=== PATIENT | female | born 2005 | race Caucasian/White ===

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

== ENCOUNTER 2025-03-26 12:40 | Outpatient (CLI) | payer BC ==
[2025-03-26 13:17] LABS: Hematocrit 40.1 % (36.0-46.0); Hemoglobin 13.7 g/dL (12.2-16.2); Mean Corpuscular Hemoglobin 29.3 pg (28.0-32.0); Mean Corpuscular Volume 85.5 fL (80.0-100.0); Nucleated Red Blood Cells % 0.0 %
[2025-03-28 02:07] LABS: Chlamydia Trachomatis, NAA Negative (Negative); Neisseria gonorrhoeae, NAA Negative (Negative)
== END 2025-03-26 17:00 | disposition home or self-care (01) ==
LOC: LAB 12:40
PROVIDERS: ATTEND Obstetrics & Gynecology
DX: O23.40 Unspecified infection of urinary tract in pregnancy, unspecified trimester (principal); N39.0 Urinary tract infection, site not specified; Z31.430 Encounter of female for testing for genetic disease carrier status for procreative management; Z20.09 Contact with and (suspected) exposure to other intestinal infectious diseases; Z3A.00 Weeks of gestation of pregnancy not specified
CPT/HCPCS: 36415; 83036; 84144; 84702; 85025; 86703; 86762; 86780; 86850; 86900; 86901; 87086; 87340